=== PATIENT | female | born 2000 | race Caucasian/White ===

== ENCOUNTER 2023-03-11 15:10 | Outpatient (CLI) | payer OTHER ==
[~2023-03-11] VITALS: Ht 170.2 cm; Wt 104.9 kg
[~2023-03-11 15:10] MED LIST: PRENTAB9 PO; TUMS500C PO
[2023-03-11] MEDS ORDERED: HOME MED LIST COMPLETE! XX SCH (15:35)
[2023-03-11 15:37] VITALS: BP 115/59
[2023-03-11 16:46] LABS: APPEARANCE, URINE CLEAR (CLEAR); BACTERIA, URINE AUTO NEGATIVE (NEGATIVE); BILIRUBIN, URINE AUTO NEGATIVE (NEGATIVE); BLOOD, URINE BLOOD NEGATIVE (NEGATIVE); COLOR, URINE YELLOW (YELLOW); GLUCOSE, URINE (UA) AUTO NEGATIVE (NEGATIVE); KETONE, URINE AUTO NEGATIVE (NEGATIVE); LEUKOCYTE ESTERASE, URINE AUTO NEGATIVE (NEGATIVE); MUCUS, URINE SMALL (NEGATIVE); NITRITE, URINE AUTO NEGATIVE (NEGATIVE); PROTEIN, URINE AUTO NEGATIVE (NEGATIVE); RBC, URINE AUTO 0 /HPF (0-3); SPECIFIC GRAVITY URINE AUTO 1.009 (1.002-1.035); SQUAMOUS EPITHELIAL CELL UR AU 2 /HPF (0-6); UROBILINOGEN, URINE AUTO 0.2 mg/dL (0.0-2.0); WBC, URINE AUTO 0 /HPF (0-3)
== END 2023-03-11 17:25 | disposition home or self-care (01) ==
LOC: M LDO 15:10
PROVIDERS: ATTEND Advanced Practice Midwife
DX: O26.893 Other specified pregnancy related conditions, third trimester (principal); M54.50 Low back pain, unspecified; O99.013 Anemia complicating pregnancy, third trimester; D64.9 Anemia, unspecified; O99.213 Obesity complicating pregnancy, third trimester; E66.9 Obesity, unspecified; O32.1XX9 Maternal care for breech presentation, other fetus; Z3A.36 36 weeks gestation of pregnancy
CPT/HCPCS: 59025; 76815; 81001; 87081; 87086; G0463

== ENCOUNTER 2023-03-15 15:51 | Outpatient (CLI) | payer OTHER ==
[~2023-03-15] VITALS: Ht 170.2 cm; Wt 113.8 kg
[2023-03-15] MEDS ORDERED: TUMS500C PO (16:01)
[2023-03-15 16:06] VITALS: BP 117/63
[2023-03-15] MEDS ORDERED: HOME MED LIST COMPLETE! XX SCH (16:35)
[2023-03-15 16:51] VITALS: BP 116/60
[2023-03-15 17:53] VITALS: BP 116/65
== END 2023-03-15 19:05 | disposition home or self-care (01) ==
LOC: M LDO 15:51
PROVIDERS: ATTEND Advanced Practice Midwife
DX: O47.1 False labor at or after 37 completed weeks of gestation (principal); Z3A.37 37 weeks gestation of pregnancy
CPT/HCPCS: 59025; 76815; G0463

== ENCOUNTER 2023-03-16 17:35 | Outpatient (CLI) | payer OTHER ==
[~2023-03-16] VITALS: Ht 170.2 cm; Wt 113.9 kg
[2023-03-16 18:01] VITALS: BP 134/81
[2023-03-16] MEDS ORDERED: HOME MED LIST COMPLETE! XX SCH (18:05)
== END 2023-03-16 19:24 | disposition home or self-care (01) ==
LOC: M LDO 17:35
PROVIDERS: ATTEND Obstetrics & Gynecology
DX: O47.1 False labor at or after 37 completed weeks of gestation (principal); Z3A.37 37 weeks gestation of pregnancy
CPT/HCPCS: 59025; G0463

== ENCOUNTER 2023-04-05 11:23 | Inpatient (IN) | payer OTHER ==
[~2023-04-05] VITALS: Ht 170.2 cm; Wt 114.9 kg
[2023-04-05] VITALS (8 sets, daily range): BP systolic 107–127; BP diastolic 57–70; TEMP 98; O2SAT 98–100
[2023-04-05] MEDS ORDERED: ACET325C5 PO (11:43)
[2023-04-05] MEDS ORDERED: GENTAMICIN 300 MG in D5W 50 ML IV STA (12:30)
[2023-04-05] MEDS ORDERED: CLINDAMYCIN 900 MG in IV 1 EA IV STA (12:30)
[2023-04-05 12:44] LABS: HEMATOCRIT 34.8 % (36.0-47.0); HEMOGLOBIN 10.9 g/dl (12.0-15.5); MEAN CORPUSCULAR HEMOGLOBIN 26.7 pg (27.0-33.0); MEAN CORPUSCULAR HGB CONC 31.3 g/dl (32.0-36.5); MEAN CORPUSCULAR VOLUME 85.1 fl (80.0-96.0); PLATELET COUNT, AUTOMATED 339 10^3/uL (150-450); RED BLOOD COUNT 4.09 10^6/uL (4.00-5.40); WHITE BLOOD COUNT 12.9 10^3/uL (4.0-10.0)
[2023-04-05] MEDS ORDERED: fentaNYL 100 MCG/2 ML INJECTION As Ordered ONE ×2 (12:46→12:57)
[2023-04-05] MEDS ORDERED: MIDAZOLAM INJ 2MG/2ML VIAL As Ordered ONE (12:46)
[2023-04-05] MEDS ORDERED: ONDANSETRON 4MG 2ML VIAL As Ordered ONE (12:46)
[2023-04-05] MEDS ORDERED: METOCLOPRAMIDE INJ 10MG/2ML VIAL As Ordered ONE (12:46)
[2023-04-05] MEDS ORDERED: SUCCINYLCHOLINE 100MG/5ML SYRINGE As Ordered ONE (12:47)
[2023-04-05] MEDS ORDERED: SUGAMMADEX SODIUM 500 MG/5 ML VIAL (BRIDION) As Ordered ONE (12:47)
[2023-04-05] MEDS ORDERED: ROCURONIUM BROMIDE 50MG/5ML VIAL As Ordered ONE (12:47)
[2023-04-05] MEDS ORDERED: propofoL 200 MG/20 ML VIAL As Ordered ONE ×3 (12:47→12:58)
[2023-04-05] MEDS ORDERED: OXYTOCIN DRIP 30 UNITS in IV 1 EA IV PRN (12:55)
[2023-04-05] MEDS ORDERED: LIDOCAINE 1% MDV 20ML VIAL INFIL PRN (12:55)
[2023-04-05] MEDS ORDERED: METHYLERGONOVINE MALEATE 0.2MG/ML 1ML VIAL IM PRN ×2 (12:55→13:15)
[2023-04-05] MEDS ORDERED: CARBOPROST TROMETHAMINE 250 MCG/ML AMP IM PRN (12:55)
[2023-04-05] MEDS ORDERED: TRANEXAMIC ACID INJection 1,000 MG in NS 100 ML IV PRN (12:55)
[2023-04-05] MEDS ORDERED: ONDANSETRON 4MG 2ML VIAL IV PRN (13:05)
[2023-04-05] MEDS ORDERED: METOCLOPRAMIDE INJ 10MG/2ML VIAL IV PRN (13:05)
[2023-04-05] MEDS ORDERED: PROMETHAZINE 25MG/ML 1ML VIAL IV PRN (13:05)
[2023-04-05] MEDS ORDERED: HYDROMORPHONE HCL 0.5 MG/ 0.5 ML SYRINGE IV PRN (13:05)
[2023-04-05] MEDS ORDERED: oxyCODONE 5MG TAB PO PRN (13:05)
[2023-04-05] MEDS ORDERED: LR 1,000 ML IV SCH (13:05)
[2023-04-05] MEDS ORDERED: KETOROLAC 60MG 2ML VIAL As Ordered ONE (13:10)
[2023-04-05] MEDS ORDERED: ACETAMINOPHEN 1000MG 100ML IV BAG As Ordered ONE (13:14)
[2023-04-05] MEDS ORDERED: OXYTOCIN 30UNITS IN 0.9% NaCl 500ML IV BAG As Ordered ONE (13:14)
[2023-04-05] MEDS ORDERED: OXYTOCIN DRIP 30 UNITS in IV 1 EA IV SCH (13:15)
[2023-04-05] MEDS ORDERED: MORPHINE 4 MG/ML 1ML VIAL IV PRN (13:15)
[2023-04-05] MEDS: LR 1,000 ML IV SCH ×2 (13:15→21:15)
[2023-04-05] MEDS ORDERED: PERCOCET 5MG/325MG TAB PO PRN ×2 (13:15)
[2023-04-05] MEDS ORDERED: SIMETHICONE 80MG CHEW TAB PO PRN (13:15)
[2023-04-05] MEDS ORDERED: RHOGAM 300MCG (1500IU) INJ IM SCH (13:15)
[2023-04-05] MEDS ORDERED: ANUSOL HC CREAM 30GM TOP PRN (13:15)
[2023-04-05] MEDS: fentaNYL 100 MCG/2 ML INJECTION IV PRN ×2 (13:40→13:44)
[2023-04-05] MEDS: KETOROLAC 30 MG/ML 1ML VIAL IV SCH (18:30)
[2023-04-05] MEDS: CLINDAMYCIN 900 MG in IV 1 EA IV SCH (21:14)
[2023-04-05] MEDS: DOCUSATE SODIUM 100MG CAPSULE PO SCH (21:14)
[2023-04-06] VITALS (7 sets, daily range): BP systolic 106–133; BP diastolic 55–71; O2SAT 96–100
[2023-04-06] MEDS: KETOROLAC 30 MG/ML 1ML VIAL IV SCH ×2 (01:06→06:24)
[2023-04-06] MEDS: CLINDAMYCIN 900 MG in IV 1 EA IV SCH ×2 (05:01→13:52)
[2023-04-06 07:40] LABS: HEMATOCRIT 24.5 % (36.0-47.0); MEAN CORPUSCULAR HEMOGLOBIN 27.1 pg (27.0-33.0); MEAN CORPUSCULAR HGB CONC 32.2 g/dl (32.0-36.5); MEAN CORPUSCULAR VOLUME 83.9 fl (80.0-96.0); PLATELET COUNT, AUTOMATED 277 10^3/uL (150-450); RED BLOOD COUNT 2.92 10^6/uL (4.00-5.40); WHITE BLOOD COUNT 13.2 10^3/uL (4.0-10.0)
[2023-04-06 07:53] LABS: HEMOGLOBIN 7.9 g/dl (12.0-15.5)
[2023-04-06] MEDS: ACETAMINOPHEN 500 MG TAB PO PRN ×2 (08:58→20:33)
[2023-04-06] MEDS: DOCUSATE SODIUM 100MG CAPSULE PO SCH ×2 (08:58→20:25)
[2023-04-06] MEDS: PRENATAL VITAMINS CHEWABLE TABLET PO SCH (08:58)
[2023-04-06] MEDS: IBUPROFEN 800 MG TAB PO SCH ×2 (15:53→22:57)
[2023-04-07 02:00] VITALS: BP 110/55; O2SAT 100
[2023-04-07] MEDS: ACETAMINOPHEN 500 MG TAB PO PRN (03:54)
[2023-04-07 06:00] VITALS: BP 120/60; O2SAT 99
[2023-04-07] MEDS: IBUPROFEN 800 MG TAB PO SCH (06:44)
[2023-04-07] MEDS: PRENATAL VITAMINS CHEWABLE TABLET PO SCH (07:55)
[2023-04-07] MEDS: DOCUSATE SODIUM 100MG CAPSULE PO SCH (07:55)
[2023-04-07] MEDS ORDERED: MEASLES,MUMPS,RUBELLA VACCINE INJ (MMR-II) SC.IMMUN ONE (09:00)
[2023-04-07 10:00] VITALS: BP 119/61; O2SAT 97
[2023-04-07] MEDS ORDERED: PERCOCET PO (12:06)
[2023-04-07] MEDS ORDERED: IBUP80TA PO (12:06)
[2023-04-07] MEDS ORDERED: COLA100C5 PO (12:06)
== END 2023-04-07 12:25 | disposition home or self-care (01) | DRG 540 ==
LOC: M LDO 11:23 → M LDI 12:20 → M OBS 14:25
PROVIDERS: ADMIT Advanced Practice Midwife; ATTEND Advanced Practice Midwife
PROC: 10D00Z1 Extraction of Products of Conception, Low, Open Approach (ICD-10-PCS; principal; 2023-04-05 13:00)
DX: O48.0 Post-term pregnancy (principal); O76 Abnormality in fetal heart rate and rhythm complicating labor and delivery; Z37.0 Single live birth; Z88.0 Allergy status to penicillin; Z91.018 Allergy to other foods; Z87.891 Personal history of nicotine dependence

== ENCOUNTER 2023-04-11 21:02 | Emergency (ER) | payer OTHER ==
[~2023-04-11] VITALS: Ht 170.2 cm; Wt 107.0 kg
[~2023-04-11 21:02] MED LIST changes: +ACET325C5 PO; +COLA100C5 PO; +IBUP80TA PO; +PERCOCET PO
[2023-04-11 22:03] LABS: BASO % 0.4 % (0.0-1.0); EOS % 0.3 % (0.0-3.0); HEMATOCRIT 30.8 % (36.0-47.0); HEMOGLOBIN 9.7 g/dl (12.0-15.5); LYMPH # 2.3 10^3/uL (1.5-5.0); LYMPH % 20.6 % (24.0-44.0); MEAN CORPUSCULAR HEMOGLOBIN 26.9 pg (27.0-33.0); MEAN CORPUSCULAR HGB CONC 31.5 g/dl (32.0-36.5); MEAN CORPUSCULAR VOLUME 85.6 fl (80.0-96.0); MONO # 0.5 10^3/uL (0.0-0.8); MONO % 4.4 % (2.0-8.0); NEUTROPHILS # 8.1 10^3/uL (1.5-8.5); PLATELET COUNT, AUTOMATED 480 10^3/uL (150-450)
[2023-04-11 22:26] LABS: AMPHETAMINES LEVEL URINE NEGATIVE (NEGATIVE); BARBITURATES URINE NEGATIVE (NEGATIVE); BENZODIAZEPINES URINE NEGATIVE (NEGATIVE); CANNABINOIDS URINE NEGATIVE (NEGATIVE); COCAINE METABOLITE URINE NEGATIVE (NEGATIVE); LIPASE 25 U/L (12-53); METHADONE URINE NEGATIVE (NEGATIVE); OPIATES URINE NEGATIVE (NEGATIVE); PHENCYCLIDINE URINE NEGATIVE (NEGATIVE)
[2023-04-11 22:29] LABS: ALBUMIN 2.8 G/DL (3.2-5.2); ALKALINE PHOSPHATASE 170 U/L (46-116); ALT/SGPT 16 U/L (7.0-40); AST/SGOT 11 U/L (<34); BILIRUBIN,DIRECT < 0.1 MG/DL (<0.4); BILIRUBIN,TOTAL 0.3 MG/DL (0.3-1.2); BLOOD UREA NITROGEN 9 MG/DL (9-23); CALCIUM LEVEL 8.9 MG/DL (8.5-10.1); CARBON DIOXIDE LEVEL 24 MMOL/L (20-31); CHLORIDE LEVEL 102 MMOL/L (98-107); CREATININE FOR GFR 0.61 MG/DL (0.55-1.30); GLOMERULAR FILTRATION RATE > 60.0 (>60); GLUCOSE, FASTING 83 MG/DL (60-100); POTASSIUM SERUM 4.1 MMOL/L (3.5-5.1); SODIUM LEVEL 137 MMOL/L (136-145); TOTAL PROTEIN 6.8 G/DL (5.7-8.2)
[2023-04-11] MEDS ORDERED: ONDA4TAB6 PO (23:07)
[2023-04-11 23:32] VITALS: BP 117/59; TEMP 98.1; O2SAT 99
== END 2023-04-11 23:33 | disposition home or self-care (01) ==
LOC: M ED 21:02
DX: R11.2 Nausea with vomiting, unspecified (principal); Z88.0 Allergy status to penicillin; Z91.018 Allergy to other foods; Z79.83 Long term (current) use of bisphosphonates; Z79.1 Long term (current) use of non-steroidal anti-inflammatories (NSAID); Z79.899 Other long term (current) drug therapy